=== PATIENT | female | born 1985 | race African-American/Black ===

== ENCOUNTER 2022-02-08 09:26 | Emergency (ER) | payer SELFPAY ==
[~2022-02-08] VITALS: Ht 162.6 cm; Wt 70.0 kg
[2022-02-08] MEDS ORDERED: ONDANSETRON HCL 4MG/2ML INJ IV STA (09:43)
[2022-02-08 10:10] LABS: BASOPHILS % 0.4 % (0.0-2.0); EOSINOPHILS % 0.2 % (0.0-5.0); HEMOGLOBIN. 8.1 g/dL (12.0-16.0); LYMPHOCYTES % 7.6 % (20.0-50.0); MEAN CORPUSCULAR HEMOGLOBIN 20.8 pg (28.0-32.0); MONOCYTES % 3.5 % (2.0-8.0); NEUTROPHILS % 88.3 % (40.0-76.0); PLATELET 399 x1000/uL (130-400); RED BLOOD CELL COUNT 3.89 mill/uL (4.2-5.4); RED CELL DISTRIBUTION WIDTH 21.7 % (11.6-14.6)
[2022-02-08 10:17] LABS: CHLORIDE 106 mEq/L (98-107)
[2022-02-08 10:19] LABS: HCG SCREEN NEGATIVE
[2022-02-08 10:25] LABS: ETHANOL BLOOD < 10 mg/dL
[2022-02-08] MEDS ORDERED: HALOPERIDOL LACTATE 5MG/ML VIAL IM ONE (11:00)
[2022-02-08] MEDS ORDERED: ONDA4TAB50 MT (13:03)
[2022-02-08 14:20] VITALS: BP 107/72
== END 2022-02-08 14:31 | disposition home or self-care (01) ==
LOC: ER 09:26
DX: R11.2 Nausea with vomiting, unspecified (principal); F17.210 Nicotine dependence, cigarettes, uncomplicated
CPT/HCPCS: 36415; 80053; 80320; 83690; 84703; 85025; 96372; 96374; 99284; J1630; J2405; G0480